=== PATIENT | male | born 1965 | race Caucasian/White ===

== ENCOUNTER 2017-03-16 05:00 | Observation (INO) | payer BC ==
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
--- NOTE | ~2017-03-16 | DS ---
Discharge Summary [place] [facility] [id number] [place]. [address] NAME: KRISTY MARTINES : 69 STATUS : DIS Cass PAT#: [id number] AGE: 51 ADM/REG DATE : 03/16/17 MR#: [id number] REPORT SERV DATE: 03/17/17 DICTATED BY: MELANIE PINEDA DATE: 03/16/17 REPORT STATUS : Draft TRANSCRIBED BY: MODL DATE: 03/16/17 ADMISSION DATE: 03/16/2017 DISCHARGE DATE: 03/16/2017 PRINCIPAL DIAGNOSIS: Complicated migraine with right-sided numbness. SECONDARY DIAGNOSES: Hyperlipidemia and intractable headache. HISTORY OF PRESENT ILLNESS: Please see Dr. Argueta's dictation on 03/16/2017 in a.m. HOSPITAL COURSE: Admitted with severe headache for four days with development of right-sided numbness. The patient ruled out for CVA with negative CT, negative MRI, and negative MRA. The patient was treated empirically for migraine with IV Depacon, Compazine. The patient slept and upon awakening his headache had resolved as had his numbness. The patient wished to go home, it was felt satisfactory do so with Imitrex p.r.n., Fioricet p.r.n., and following up with Michael Nazario, his primary care provider. It was felt that migraine prophylaxis was not necessary at this time as this was the second time in his life he had it and the other one was several years ago. DICTATED BY: Russell Da Silva/LINDSAY Melanie Pineda M.D. / [id number] CC: Russell Da Silva DO
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
[2017-03-16 03:12] LABS: BASOPHILS 0.1 %; BASOPHILS ABSOLUTE 0.01 10/3/uL (0.0-0.16); EOSINOPHILS 0 %; HEMATOCRIT 41.4 % (40.0-51.0); HEMOGLOBIN 14.8 g/dL (13.6-17.8); IMMATURE GRANULOCYTES 0.5 %; IMMATURE GRANULOCYTES ABSOLUTE 0.05 10/3/uL (0.0-0.11); LYMPHOCYTES 15.4 %; LYMPHOCYTES ABSOLUTE 1.68 10/3/uL (0.67-4.30); MEAN CORPUS HGB CONC 35.7 g/dL (32.0-36.0); MEAN CORPUSCULAR HEMOGLOB 31.8 pg (26.0-34.0); MEAN PLATELET VOLUME 9.7 fL (9.2-13.0); MONOCYTES 5.3 %; MONOCYTES ABSOLUTE 0.58 10/3/uL (0.21-1.20); NEUTROPHILS 78.7 %; NEUTROPHILS ABSOLUTE 8.61 10/3/uL (2.02-8.40); PLATELET COUNT 271 10/3/uL (150-400); RBC DISTRIBUTION WIDTH 12.1 % (12.0-16.0); RED CELL COUNT 4.65 10/6/uL (4.7-6.1); WHITE BLOOD CELLS 10.9 10/3/uL (4.5-10.5)
[2017-03-16 03:13] LABS: MANUAL DIFF NO %
[2017-03-16 03:23] LABS: PARTIAL THROMBO TIME 26.4 SEC (22.5-37.2); PROTIME (NOT ORD) 13.1 SEC (12.0-14.5)
[2017-03-16 03:30] LABS: ALKALINE PHOSPHATASE 55 U/L (45-117); BUN (BLOOD UREA NITROGEN) 11 MG/DL (6-23); CALCIUM, SERUM 9.5 MG/DL (8.5-10.4); CHLORIDE, SERUM 105 MMOL/L (96-112); CO2 (CARBON DIOXIDE) 25 MMOL/L (24-34); CREATININE 1.32 MG/DL (0.70-1.30); GFR AFRICAN AMERICAN 73 ML/MIN (>=60); GFR NON AFRICAN AMERICAN 63 ML/MIN (>=60); GLOBULIN 3.9 G/DL (2.5-4.1); GLUCOSE, SERUM 133 MG/DL (60-99); POTASSIUM, SERUM 4.2 MMOL/L (3.5-5.3); SGOT(AST) 28 U/L (5-40); SGPT(ALT) 52 U/L (5-65); SODIUM, SERUM 139 MMOL/L (135-148); TOTAL BILIRUBIN 0.3 MG/DL (0-1.2); TOTAL PROTEIN 7.9 G/DL (6.0-8.5); TROPONIN I <0.02 NG/ML (<0.05)
[2017-03-16] MEDS ORDERED: CRESTOR20 MG PO (07:10)
[2017-03-16] MEDS ORDERED: LOVAZA1 GM PO (07:10)
[2017-03-16] MEDS ORDERED: PROTONIX PO (07:11)
[2017-03-16] MEDS ORDERED: ASAB PO (07:11)
[2017-03-16] MEDS ORDERED: COZ25 PO (07:11)
[2017-03-16] MEDS ORDERED: RESTORA PO (07:17)
[2017-03-16 14:54] LABS: BASOPHILS 0.1 %; BASOPHILS ABSOLUTE 0.01 10/3/uL (0.0-0.16); EOSINOPHILS 0.1 %; EOSINOPHILS ABSOLUTE 0.02 10/3/uL (0.0-0.53); HEMATOCRIT 40.2 % (40.0-51.0); HEMOGLOBIN 13.9 g/dL (13.6-17.8); IMMATURE GRANULOCYTES 0.4 %; IMMATURE GRANULOCYTES ABSOLUTE 0.05 10/3/uL (0.0-0.11); LYMPHOCYTES 18.5 %; LYMPHOCYTES ABSOLUTE 2.55 10/3/uL (0.67-4.30); MEAN CORPUS HGB CONC 34.6 g/dL (32.0-36.0); MEAN CORPUSCULAR HEMOGLOB 31.1 pg (26.0-34.0); MEAN CORPUSCULAR VOLUME 89.9 fL (80-100); MEAN PLATELET VOLUME 9.6 fL (9.2-13.0); MONOCYTES 9.7 %; MONOCYTES ABSOLUTE 1.33 10/3/uL (0.21-1.20); NEUTROPHILS 71.2 %; NEUTROPHILS ABSOLUTE 9.81 10/3/uL (2.02-8.40); PLATELET COUNT 235 10/3/uL (150-400); RBC DISTRIBUTION WIDTH 12.6 % (12.0-16.0); RED CELL COUNT 4.47 10/6/uL (4.7-6.1); WHITE BLOOD CELLS 13.8 10/3/uL (4.5-10.5)
[2017-03-16 14:55] LABS: MANUAL DIFF NO %
[2017-03-16 15:02] LABS: INTERNATIONAL NORMAL RATI 1.1 UNITS (-); PARTIAL THROMBO TIME 28.2 SEC (22.5-37.2); PROTIME (NOT ORD) 13.6 SEC (12.0-14.5)
[2017-03-16 15:36] LABS: ALBUMIN 3.8 G/DL (3.5-5.0); ALKALINE PHOSPHATASE 53 U/L (45-117); DIRECT BILIRUBIN < 0.1 MG/DL (0.0-0.4); FOLATE 19.4 NG/ML (>5.2); INDIRECT BILIRUBIN(NOT ORDER) 0.2 MG/DL (0.1-0.9); SGOT(AST) 21 U/L (5-40); SGPT(ALT) 47 U/L (5-65); TOTAL BILIRUBIN 0.3 MG/DL (0-1.2); TOTAL PROTEIN 7.3 G/DL (6.0-8.5); TROPONIN I <0.02 NG/ML (<0.05)
[2017-03-16 16:26] LABS: ASCORBIC ACID (UR NOT ORDER) NEG (NEG); BILIRUBIN, URINE NEGATIVE (NEG); KETONE, URINE NEGATIVE (NEG); LEUKOCYTE ESTERASE(NOT OR TRACE (NEG); WBC (NOT ORDERED) (RFLEX) 4 (0-5)
[2017-03-16] MEDS ORDERED: IMITREX50 PO (17:59)
[2017-03-16] MEDS ORDERED: FIORICET 50-301 EACH PO (18:00)
== END 2017-03-16 18:53 | disposition home or self-care (01) ==
LOC: ER 05:00 → 1SO 06:39
PROVIDERS: Hospitalist; Internal Medicine; Specialist
DX: G45.9 Transient cerebral ischemic attack, unspecified (principal); R51 Headache; N17.9 Acute kidney failure, unspecified; I10 Essential (primary) hypertension; K21.9 Gastro-esophageal reflux disease without esophagitis; E66.9 Obesity, unspecified; Z90.49 Acquired absence of other specified parts of digestive tract; E78.5 Hyperlipidemia, unspecified; G43.909 Migraine, unspecified, not intractable, without status migrainosus; Z79.82 Long term (current) use of aspirin
CPT/HCPCS: 70450; 70544; 70548; 70551-52; 71010; 80053; 81001; 82140; 82248; 82306; 82533; 82607; 82746; 82962; 83036; 84484; 85025; 85610; 85730; 93005; 96372; 96374; 96375; 99285; A9270-GY; G0378; J0780